=== PATIENT | female | born 1940 | race Two or more races ===

== ENCOUNTER 2017-12-26 08:27 | Inpatient (IN) | payer OTHER ==
[~2017-12-26] VITALS: Ht 162.6 cm; Wt 125.0 kg
[2017-12-28] MEDS ORDERED: CLOPIDOGREL BIS75 MG PO (11:11)
[2017-12-28] MEDS ORDERED: LIPITOR40 MG PO (11:11)
[2017-12-28] MEDS ORDERED: NAMENDA10 MG PO (11:11)
== END 2017-12-28 11:52 | DRG 149 ==
LOC: ER 08:27 → MEDJ 16:29 → SEC-K 16:29 → MEDJ 17:43
PROC: B030ZZZ Magnetic Resonance Imaging (MRI) of Brain (ICD-10-PCS; principal; 2017-12-26)
PROC: BW28ZZZ Computerized Tomography (CT Scan) of Head (ICD-10-PCS; 2017-12-26)
PROC: B246ZZZ Ultrasonography of Right and Left Heart (ICD-10-PCS; 2017-12-27)
PROC: B345ZZZ Ultrasonography of Bilateral Common Carotid Arteries (ICD-10-PCS; 2017-12-27)
PROC: B348ZZZ Ultrasonography of Bilateral Internal Carotid Arteries (ICD-10-PCS; 2017-12-27)
DX: H81.393 Other peripheral vertigo, bilateral (principal); G30.0 Alzheimer's disease with early onset; F02.80 Dementia in other diseases classified elsewhere, unspecified severity, without behavioral disturbance, psychotic disturbance, mood disturbance, and anxiety; E11.69 Type 2 diabetes mellitus with other specified complication
CPT/HCPCS: 70551

== ENCOUNTER 2020-05-27 09:45 | Emergency (ER) | payer OTHER ==
[~2020-05-27] VITALS: Ht 154.9 cm; Wt 52.2 kg
[~2020-05-27 09:45] MED LIST: CLOPIDOGREL BIS75 MG PO; LIPITOR40 MG PO; NAMENDA10 MG PO
== END 2020-05-27 13:04 | disposition home or self-care (01) ==
LOC: ER 09:45
DX: S01.02XA Laceration with foreign body of scalp, initial encounter (principal); W01.198A Fall on same level from slipping, tripping and stumbling with subsequent striking against other object, initial encounter; Y93.E8 Activity, other personal hygiene; Y92.012 Bathroom of single-family (private) house as the place of occurrence of the external cause; Y99.8 Other external cause status

== ENCOUNTER 2021-02-05 07:13 | Outpatient (CLI) | payer OTHER | END 2021-02-05 07:21 | disposition home or self-care (01) | LOC: TOM 07:13 | DX: Z00.00 Encounter for general adult medical examination without abnormal findings (principal); R07.89 Other chest pain; K46.9 Unspecified abdominal hernia without obstruction or gangrene | CPT/HCPCS: 71270; Q9965 ==

== ENCOUNTER 2021-03-20 08:13 | Emergency (ER) | payer OTHER ==
[~2021-03-20] VITALS: Ht 154.9 cm; Wt 49.9 kg
[2021-03-20] MEDS ORDERED: ZOLOFT25 MG PO (08:26)
[2021-03-20] MEDS ORDERED: PEPCID AC20 MG (08:27)
[2021-03-20] MEDS ORDERED: OMEPRAZOLE20 MG PO (08:27)
[2021-03-20] MEDS ORDERED: MEDROLPACK PO (12:58)
== END 2021-03-20 13:15 | disposition home or self-care (01) ==
LOC: ER 08:13
DX: M54.2 Cervicalgia (principal)

== ENCOUNTER 2022-01-05 11:51 | Emergency (ER) | payer OTHER ==
[~2022-01-05] VITALS: Ht 154.9 cm; Wt 54.4 kg
[~2022-01-05 11:51] MED LIST changes: +MEDROLPACK PO; +OMEPRAZOLE20 MG PO; +PEPCID AC20 MG; +ZOLOFT25 MG PO
[2022-01-05] MEDS ORDERED: CIPRO500 MG PO (15:24)
== END 2022-01-05 18:18 | disposition home or self-care (01) ==
LOC: ER 11:51
DX: N39.0 Urinary tract infection, site not specified (principal)

== ENCOUNTER 2022-07-01 11:21 | Emergency (ER) | payer OTHER ==
[~2022-07-01] VITALS: Ht 152.4 cm; Wt 59.0 kg
[~2022-07-01 11:21] MED LIST changes: +BUSPIRONE HCL10 MG PO; +CIPRO500 MG PO; +CLONAZEPAM0.5 MG PO; +DIVALPROEX SOD250 MG PO; +ESCITALOPRAM OX10 MG PO; +FAMOTIDINE40 MG PO; +MEMANTINE HCL E28 MG PO; +OMEPRAZOLE20 M1 PO
[2022-07-01] MEDS ORDERED: DEPAKOTE ER250 MG PO (11:32)
== END 2022-07-01 14:53 | disposition home or self-care (01) ==
LOC: ER 11:21
DX: S00.83XA Contusion of other part of head, initial encounter (principal); W18.30XA Fall on same level, unspecified, initial encounter; Y93.9 Activity, unspecified; Y92.019 Unspecified place in single-family (private) house as the place of occurrence of the external cause; Z91.013 Allergy to seafood; Z88.6 Allergy status to analgesic agent; G30.9 Alzheimer's disease, unspecified; F02.80 Dementia in other diseases classified elsewhere, unspecified severity, without behavioral disturbance, psychotic disturbance, mood disturbance, and anxiety

== ENCOUNTER 2022-08-31 20:00 | Emergency (ER) | payer OTHER ==
[~2022-08-31] VITALS: Ht 149.9 cm; Wt 54.4 kg
[~2022-08-31 20:00] MED LIST changes: +DEPAKOTE ER250 MG PO
[2022-09-01] MEDS ORDERED: CIPRO500 MG/5 M PO (03:18)
== END 2022-09-01 06:41 ==
LOC: ER 20:00
DX: N39.0 Urinary tract infection, site not specified (principal); Z88.6 Allergy status to analgesic agent; Z91.013 Allergy to seafood; G30.9 Alzheimer's disease, unspecified; F02.80 Dementia in other diseases classified elsewhere, unspecified severity, without behavioral disturbance, psychotic disturbance, mood disturbance, and anxiety; Z20.822 Contact with and (suspected) exposure to COVID-19